=== PATIENT | female | born 1965 | race Caucasian/White ===

== ENCOUNTER 2017-02-02 10:23 | Emergency (ER) | payer OTHER ==
[~2017-02-02] VITALS: Ht 157.5 cm; Wt 92.7 kg
[2017-02-02 10:37] LABS: GLUCOSE,POINT OF CARE 157 MG/DL (70-110)
[2017-02-02] MEDS ORDERED: METF500T4 PO (10:37)
[2017-02-02] MEDS ORDERED: ASPI-556 PO (10:37)
[2017-02-02] MEDS ORDERED: CHOLESTEROL PO (10:37)
[2017-02-02] MEDS ORDERED: LISI-662 PO (10:37)
[2017-02-02 11:27] VITALS: BP 141/81
== END 2017-02-02 11:50 | disposition home or self-care (01) ==
LOC: EMS 10:26
DX: J98.01 Acute bronchospasm (principal); E11.9 Type 2 diabetes mellitus without complications; I10 Essential (primary) hypertension; E78.00 Pure hypercholesterolemia, unspecified; Z79.82 Long term (current) use of aspirin
CPT/HCPCS: 81025; 82962; 99282